=== PATIENT | male | born 1950 | race Caucasian/White ===

== ENCOUNTER 2024-12-25 16:41 | Inpatient (IN) | payer OTHER ==
[2024-12-25 16:58] LABS: BASOPHILS ABSOLUTE AUTO 0.03 10^3/uL (0.00-0.50); BASOPHILS PERCENT AUTO 0.1 % (0-1); EOSINOPHILS ABSOLUTE AUTO 0.01 10^3/uL (0.00-1.50); HEMATOCRIT 51.3 % (42.0-52.0); HEMOGLOBIN 17.2 g/dL (14.0-18.0); IMMATURE GRAN ABSOLUTE AUTO 0.04 10^3/uL (0.00-0.49); IMMATURE GRAN PERCENT AUTO 0.2 % (0.0-4.9); LYMPHOCYTES PERCENT AUTO 2.9 % (24-44); MEAN CORPUSCULAR HEMOGLOBIN 32.2 pg (27.0-32.0); MEAN CORPUSCULAR HGB CONC 33.5 g/dL (32.0-36.0); MEAN CORPUSCULAR VOLUME 96.1 fL (83.0-97.0); MONOCYTES ABSOLUTE AUTO 1.91 10^3/uL (0.00-1.50); MONOCYTES PERCENT AUTO 7.8 % (0-10); NEUTROPHILS ABSOLUTE AUTO 21.81 x10^3/uL (1.80-8.00); PLATELET COUNT,PLT 195 10^3/uL (150-400); RED BLOOD CELL COUNT 5.34 x10^6/uL (4.50-6.00)
[2024-12-25 17:02] LABS: WHITE BLOOD CELL COUNT,WBC 24.5 10^3/uL (4.0-11.0)
[2024-12-25] MEDS: Ondansetron 4 MG/2 ML SDV IVPUSH STA (17:08)
[2024-12-25 17:12] LABS: BILIRUBIN TOTAL 1.4 mg/dL (0.0-1.0); C-REACTIVE PROTEIN 3.84 mg/dL (<=0.50); CALCIUM 9.8 mg/dL (8.4-10.1); CREATININE 1.4 mg/dL (0.7-1.3); EST CRCL DRUG DOSING (CG) 46.14 mL/min; MAGNESIUM 1.8 mg/dL (1.8-2.4); POTASSIUM,K 4.2 mEq/L (3.5-5.0); PROTEIN TOTAL,TP 7.8 g/dL (6.4-8.2)
[2024-12-25] MEDS: Sodium Chloride 0.9% 1,000 ML IV ONE (17:20)
[2024-12-25] MEDS: Piperacillin/Tazobactam 4.5 GM in Sodium Chloride 0.9% 100 ML IV ONE (17:20)
[2024-12-25 17:34] LABS: CORONAVIRUS COVID-19 NAA NEGATIVE (NEGATIVE); INFLUENZA A NAA NEGATIVE (NEGATIVE); INFLUENZA B NAA NEGATIVE (NEGATIVE)
[2024-12-25 17:49] LABS: APPEARANCE,URINE CLEAR (CLEAR); BILIRUBIN,URINE NEGATIVE (NEGATIVE); COLOR,URINE LIGHT YELLOW (YELLOW); GLUCOSE,URINE NEGATIVE (NEGATIVE); KETONES,URINE NEGATIVE (NEGATIVE); LEUKOCYTE ESTERASE,URINE SMALL (NEGATIVE); NITRITE,URINE NEGATIVE (NEGATIVE); OCCULT BLOOD,URINE TRACE-INTACT (NEGATIVE); PROTEIN,URINE NEGATIVE (NEGATIVE); UROBILINOGEN,URINE 0.2 EU/dL (0.2-1.0)
[2024-12-25 17:53] LABS: BACTERIA,URINE RARE /HPF (NOT SEEN); EPITHELIAL CELLS,URINE RARE /HPF (NOT SEEN); MUCUS,URINE NOT SEEN /HPF (NOT SEEN); RBC,URINE 0-5 /HPF (0-5); WBC,URINE 0-5 /HPF (0-5)
[2024-12-25] MEDS: Iopamidol 755 Mg/ML 100 ML Bottle IVPUSH ONE (18:03)
[2024-12-25] MEDS ORDERED: Polyethylene Glycol 3350 Powder 17 GM Packet PO PRN (20:35)
[2024-12-25] MEDS ORDERED: Ondansetron 4 MG Tab.DIS PO PRN (20:35)
[2024-12-25] MEDS ORDERED: Docusate Sodium 100 MG Cap PO PRN (20:35)
[2024-12-25] MEDS: Levofloxacin/Dextrose 5%-Water 750 MG in Premix Bag 1 BAG IV SCH (21:34)
[2024-12-25] MEDS: Acetaminophen/HYDROcodone 325-5 MG Tab PO PRN (23:06)
[2024-12-25] MEDS: Albuterol 0.083% 2.5 MG/3 ML Neb Soln NEB PRN (23:30)
[2024-12-25] MEDS ORDERED: guaiFENesin 200 MG Tab PO PRN (23:34)
[2024-12-25] MEDS ORDERED: Ibuprofen 200 MG Tab PO PRN (23:34)
[2024-12-26] MEDS: Pantoprazole 40 MG Tab.CR PO SCH (06:02)
[2024-12-26 07:24] LABS: CALCIUM 8.9 mg/dL (8.4-10.1); CREATININE 1.3 mg/dL (0.7-1.3); EST CRCL DRUG DOSING (CG) 49.69 mL/min; MAGNESIUM 1.9 mg/dL (1.8-2.4)
[2024-12-26] MEDS: Cholecalciferol (Vitamin D3) 25 MCG Tab PO SCH (07:32)
[2024-12-26] MEDS: Tamsulosin 0.4 MG Cap.ER PO SCH ×2 (07:32→23:51)
[2024-12-26] MEDS: Albuterol/Ipratropium 3.0-0.5 MG/3 ML Neb Soln NEB SCH (07:32)
[2024-12-26] MEDS: Aspirin 81 MG Tab.Chew PO SCH (07:32)
[2024-12-26] MEDS: Gabapentin 300 MG Cap PO SCH ×3 (07:32→23:51)
[2024-12-26] MEDS: Gabapentin 100 MG Cap PO SCH (07:32)
[2024-12-26] MEDS: Loratadine 10 MG Tab PO SCH (07:33)
[2024-12-26] MEDS: predniSONE 5 MG Tab PO SCH (07:33)
[2024-12-26] MEDS: Sodium Chloride 0.9% 1,000 ML IV SCH (07:40)
[2024-12-26] MEDS: Arformoterol 15 MCG/2 ML Neb Soln NEB SCH ×2 (07:41→12:18)
[2024-12-26] MEDS: Budesonide 0.5 MG/2 ML Neb Susp NEB SCH ×2 (07:41→23:51)
[2024-12-26 07:43] LABS: BASOPHILS ABSOLUTE AUTO 0.03 10^3/uL (0.00-0.50); BASOPHILS PERCENT AUTO 0.2 % (0-1); EOSINOPHILS ABSOLUTE AUTO 0.04 10^3/uL (0.00-1.50); EOSINOPHILS PERCENT AUTO 0.2 % (0-6); HEMATOCRIT 49.3 % (42.0-52.0); HEMOGLOBIN 16.3 g/dL (14.0-18.0); IMMATURE GRAN ABSOLUTE AUTO 0.03 10^3/uL (0.00-0.49); IMMATURE GRAN PERCENT AUTO 0.2 % (0.0-4.9); LYMPHOCYTES ABSOLUTE AUTO 0.87 10^3/uL (0.60-5.00); LYMPHOCYTES PERCENT AUTO 4.5 % (24-44); MEAN CORPUSCULAR HEMOGLOBIN 32.1 pg (27.0-32.0); MEAN CORPUSCULAR HGB CONC 33.1 g/dL (32.0-36.0); MEAN CORPUSCULAR VOLUME 97.2 fL (83.0-97.0); MONOCYTES ABSOLUTE AUTO 1.59 10^3/uL (0.00-1.50); MONOCYTES PERCENT AUTO 8.2 % (0-10); NEUTROPHILS ABSOLUTE AUTO 16.94 x10^3/uL (1.80-8.00); NEUTROPHILS PERCENT AUTO 86.7 % (41-71); PLATELET COUNT,PLT 189 10^3/uL (150-400); RED BLOOD CELL COUNT 5.07 x10^6/uL (4.50-6.00); WHITE BLOOD CELL COUNT,WBC 19.5 10^3/uL (4.0-11.0)
[2024-12-26] MEDS ORDERED: Non-Formulary Medication 1 Each (Ammonium Lactate [Lac-Hydrin 12% Crm] 140 GM Tube) TOP SCH (08:00)
[2024-12-26] MEDS: SUMAtriptan 50 MG Tab PO PRN (08:42)
[2024-12-26] MEDS: Ondansetron 4 MG/2 ML SDV IV PRN (09:13)
[2024-12-26] MEDS ORDERED: Lidocaine 4% Patch TOP PRN (11:30)
[2024-12-26] MEDS: guaiFENesin 200 MG Tab PO SCH (11:52)
[2024-12-26] MEDS: ROFLUMILAST 500 MCG PO SCH (11:53)
[2024-12-26] MEDS: Multivitamin Tab PO SCH (11:53)
[2024-12-26] MEDS: POTASSIUM CITRATE 10 MEQ PO SCH (11:54)
[2024-12-26] MEDS: REVEFENACIN 175 MCG/3 ML INH SCH ×2 (11:56→18:44)
[2024-12-26] MEDS: Acetaminophen 325 MG Tab PO PRN (19:56)
[2024-12-26] MEDS: Temazepam 15 MG Cap PO PRN (23:51)
[2024-12-26] MEDS: Rosuvastatin 10 MG Tab PO SCH (23:51)
[2024-12-27 07:27] LABS: BASOPHILS ABSOLUTE AUTO 0.04 10^3/uL (0.00-0.50); BASOPHILS PERCENT AUTO 0.4 % (0-1); EOSINOPHILS ABSOLUTE AUTO 0.15 10^3/uL (0.00-1.50); EOSINOPHILS PERCENT AUTO 1.3 % (0-6); HEMATOCRIT 44.3 % (42.0-52.0); HEMOGLOBIN 14.6 g/dL (14.0-18.0); IMMATURE GRAN ABSOLUTE AUTO 0.05 10^3/uL (0.00-0.49); IMMATURE GRAN PERCENT AUTO 0.4 % (0.0-4.9); LYMPHOCYTES ABSOLUTE AUTO 1.27 10^3/uL (0.60-5.00); LYMPHOCYTES PERCENT AUTO 11.2 % (24-44); MEAN CORPUSCULAR HEMOGLOBIN 32.2 pg (27.0-32.0); MEAN CORPUSCULAR VOLUME 97.8 fL (83.0-97.0); MONOCYTES ABSOLUTE AUTO 1.12 10^3/uL (0.00-1.50); MONOCYTES PERCENT AUTO 9.9 % (0-10); NEUTROPHILS ABSOLUTE AUTO 8.68 x10^3/uL (1.80-8.00); NEUTROPHILS PERCENT AUTO 76.8 % (41-71); PLATELET COUNT,PLT 179 10^3/uL (150-400); RED BLOOD CELL COUNT 4.53 x10^6/uL (4.50-6.00); WHITE BLOOD CELL COUNT,WBC 11.3 10^3/uL (4.0-11.0)
[2024-12-27 08:08] LABS: ALBUMIN 2.9 g/dL (3.4-5.0); BILIRUBIN TOTAL 0.5 mg/dL (0.0-1.0); C-REACTIVE PROTEIN 4.58 mg/dL (<=0.50); CALCIUM 8.3 mg/dL (8.4-10.1); CREATININE 1.5 mg/dL (0.7-1.3); EST CRCL DRUG DOSING (CG) 43.07 mL/min; PROTEIN TOTAL,TP 6.3 g/dL (6.4-8.2)
[2024-12-27] MEDS: Loratadine 10 MG Tab PO SCH (11:02)
[2024-12-27] MEDS: predniSONE 5 MG Tab PO SCH (11:02)
[2024-12-27] MEDS: Aspirin 81 MG Tab.Chew PO SCH (11:02)
[2024-12-27] MEDS: Pantoprazole 40 MG Tab.CR PO SCH (11:03)
[2024-12-27] MEDS: Levofloxacin/Dextrose 5%-Water 500 MG in Premix Bag 1 BAG IV SCH (19:50)
[2024-12-28 07:28] LABS: BASOPHILS ABSOLUTE AUTO 0.04 10^3/uL (0.00-0.50); BASOPHILS PERCENT AUTO 0.4 % (0-1); EOSINOPHILS ABSOLUTE AUTO 0.22 10^3/uL (0.00-1.50); EOSINOPHILS PERCENT AUTO 2.3 % (0-6); HEMATOCRIT 43.2 % (42.0-52.0); HEMOGLOBIN 14.6 g/dL (14.0-18.0); IMMATURE GRAN ABSOLUTE AUTO 0.04 10^3/uL (0.00-0.49); IMMATURE GRAN PERCENT AUTO 0.4 % (0.0-4.9); LYMPHOCYTES PERCENT AUTO 13.4 % (24-44); MEAN CORPUSCULAR HEMOGLOBIN 32.4 pg (27.0-32.0); MEAN CORPUSCULAR HGB CONC 33.8 g/dL (32.0-36.0); MONOCYTES ABSOLUTE AUTO 0.82 10^3/uL (0.00-1.50); MONOCYTES PERCENT AUTO 8.5 % (0-10); NEUTROPHILS ABSOLUTE AUTO 7.28 x10^3/uL (1.80-8.00); PLATELET COUNT,PLT 194 10^3/uL (150-400); WHITE BLOOD CELL COUNT,WBC 9.7 10^3/uL (4.0-11.0)
[2024-12-28 07:41] LABS: ALBUMIN 3.1 g/dL (3.4-5.0); BILIRUBIN TOTAL 0.5 mg/dL (0.0-1.0); C-REACTIVE PROTEIN 1.91 mg/dL (<=0.50); CALCIUM 8.5 mg/dL (8.4-10.1); CREATININE 1.3 mg/dL (0.7-1.3); EST CRCL DRUG DOSING (CG) 49.69 mL/min; POTASSIUM,K 3.4 mEq/L (3.5-5.0); PROTEIN TOTAL,TP 6.5 g/dL (6.4-8.2)
== END 2024-12-28 11:10 | disposition home or self-care (01) | DRG 194 ==
LOC: CC.ED 16:41 → CC.MS 19:10 → UNDOADMIN 19:10 → CC.MS 20:00
PROVIDERS: ADMIT Nurse Practitioner; ATTEND Nurse Practitioner
DX: J18.9 Pneumonia, unspecified organism (principal); J44.0 Chronic obstructive pulmonary disease with (acute) lower respiratory infection; N41.9 Inflammatory disease of prostate, unspecified; G43.909 Migraine, unspecified, not intractable, without status migrainosus; D72.828 Other elevated white blood cell count; Z79.82 Long term (current) use of aspirin; Z79.899 Other long term (current) drug therapy; Z79.52 Long term (current) use of systemic steroids
CPT/HCPCS: 0240U; 36415; 71045; 74177; 80048; 80053; 81001; 83605; 83735; 85025; 86140; 87040; 87070; 87205; 94640; 96361; 96365; 96366; 96375; 99223; 99232; 99233; 99239; 99285-25; A9270-GY; J1956; J2405; J2543; J3490; J7030; J7512; Q9967

== ENCOUNTER 2025-06-29 15:15 | Emergency (ER) | payer OTHER ==
[2025-06-29] MEDS: methylPREDNISolone Sodium Succinate 125 MG/2 ML SDV IVPUSH STA (16:02)
[2025-06-29 16:09] LABS: BASOPHILS ABSOLUTE AUTO 0.04 10^3/uL (0.00-0.50); BASOPHILS PERCENT AUTO 0.3 % (0-1); EOSINOPHILS ABSOLUTE AUTO 0.19 10^3/uL (0.00-1.50); EOSINOPHILS PERCENT AUTO 1.4 % (0-6); IMMATURE GRAN ABSOLUTE AUTO 0.04 10^3/uL (0.00-0.49); IMMATURE GRAN PERCENT AUTO 0.3 % (0.0-4.9); LYMPHOCYTES ABSOLUTE AUTO 1.10 10^3/uL (0.60-5.00); LYMPHOCYTES PERCENT AUTO 8.4 % (24-44); MONOCYTES ABSOLUTE AUTO 1.01 10^3/uL (0.00-1.50); MONOCYTES PERCENT AUTO 7.7 % (0-10); NEUTROPHILS ABSOLUTE AUTO 10.73 x10^3/uL (1.80-8.00); NEUTROPHILS PERCENT AUTO 81.9 % (41-71); PLATELET COUNT,PLT 171 10^3/uL (150-400); RED BLOOD CELL COUNT 5.33 x10^6/uL (4.50-6.00); WHITE BLOOD CELL COUNT,WBC 13.1 10^3/uL (4.0-11.0)
[2025-06-29 16:21] LABS: ALANINE AMINOTRANSFERASE,ALT 37 U/L (12-78); ASPARTATE AMNIOTRANSFERASE,AST 23 U/L (15-37); BILIRUBIN TOTAL 0.8 mg/dL (0.0-1.0); BLOOD UREA NITROGEN,BUN 12 mg/dL (7-18); CARBON DIOXIDE,CO2 28 mmol/L (21-32); CHLORIDE,CL 101 mEq/L (98-106); CREATININE 1.0 mg/dL (0.7-1.3); EST CRCL DRUG DOSING (CG) 63.65 mL/min; ESTIMATED GFR 79 mL/min (>=60); GLUCOSE RANDOM 115 mg/dL (75-99); POTASSIUM,K 3.8 mEq/L (3.5-5.0); PROTEIN TOTAL,TP 7.2 g/dL (6.4-8.2); SODIUM,NA 139 mEq/L (136-145)
== END 2025-06-29 17:00 | disposition home or self-care (01) ==
LOC: CC.ED 15:15
DX: J44.1 Chronic obstructive pulmonary disease with (acute) exacerbation (principal); E78.00 Pure hypercholesterolemia, unspecified; Z90.49 Acquired absence of other specified parts of digestive tract; Z79.899 Other long term (current) drug therapy; Z79.82 Long term (current) use of aspirin
CPT/HCPCS: 36415; 71046; 80053; 83735; 85025; 86140; 87426-QW; 94640; 96374; 96375; 99284; 99285-25; A9270-GY; J0696; J2919